=== PATIENT | female | born 1970 | race Caucasian/White ===

== ENCOUNTER 2022-01-17 09:07 | Outpatient (CLI) | payer MEDICAID ==
--- NOTE | 2022-01-24 15:29 | Mammography Report ---
BILATERAL DIGITAL SCREENING MAMMOGRAM 3D/2D WITH EXAGGERATED CC: 01/17/2022 CLINICAL: Routine screening. Family history of breast cancer. No prior exams were available for comparison. There are scattered fibroglandular elements in both br easts. There is a 0.6 cm oval asymmetry with a circumscribed margin in the left breast at 4 o'clock middle d epth 6 cm from the nipple. No other significant masses, calcifications, or other findings are seen in either breast. IMPRESSION: INCOMPLETE: NEEDS ADDITIONAL IMAGING EVALUATION The 0.6 cm oval asymmetry in the left breast is indeterminate. An ultrasound is recommended. This exam was interpreted at Station ID: [id number]. NOTE: For mammograms, a report in lay terms will be sent to the patient. Approximately 15% of breast malignancies will not be visualized mammographically. In the management of a palpable breast mass, a negative mammogram must not discourage biopsy of a clinically suspicious lesion. Electronically Signed By: Farzad Hagan acr/:01/24/2022 14:36:34 ACR BI-RADS Category 0: Incomplete 3340F PARENCHYMAL PATTERN: (A) - The breast(s) demonstrate(s) scattered fibroglandular densities. BI-RADS CATEGORY: (0) - 0 Ultrasound [id number] Immediate follow-up LATERALITY: (L)
== END 2022-01-17 09:08 | disposition home or self-care (01) ==
LOC: DI.S 09:07
PROVIDERS: ATTEND Registered Nurse
DX: Z12.31 Encounter for screening mammogram for malignant neoplasm of breast (principal); Z80.3 Family history of malignant neoplasm of breast; R92.8 Other abnormal and inconclusive findings on diagnostic imaging of breast

== ENCOUNTER 2022-02-21 09:13 | Outpatient (CLI) | payer MEDICAID ==
--- NOTE | 2022-02-21 10:58 | Ultrasound Report ---
LIMITED ULTRASOUND OF LEFT BREAST AND AXILLA: 02/21/2022 CLINICAL: Patient returns today to evaluate a focal asymmetry in the left breast. Comparison is made to exams dated: 01/17/2022 mammogram - [facility], 12/10/2018 mammo gram, and 05/09/2013 mammogram - [facility]. Color flow ultrasound of the left breast 4 o'clock, and axilla regions was performed. Corea scale im ages of the real-time examination were reviewed. There is a 0.5 cm x 0.6 cm x 0.4 cm oval mass with a circumscribed margin in the left breast at 4 o'c lock anterior depth 4 cm from the nipple. This oval mass is hypoechoic. This correlates with mammog patricia findings. Color flow imaging demonstrates that there is vascularity present. No significant abnormalities were seen sonographically in the left axilla. IMPRESSION: SUSPICIOUS OF MALIGNANCY The 0.5 cm x 0.6 cm x 0.4 cm oval mass in the left breast is suspicious of malignancy. An ultrasound guided biopsy is recommended. The findings and recommendations were discussed with the patient by t onsite radiologist, Dr. Diane, at the time of the exam. This exam was interpreted at Station ID: [id number]. Electronically Signed By: Aaron ingram/lele:02/21/2022 10:40:30 Ultrasound BI-RADS: 4 Suspicious for malignancy BI-RADS CATEGORY: (4) - 4 Biopsy [id number] Immediate follow-up LATERALITY: (L)
== END 2022-02-21 09:14 | disposition home or self-care (01) ==
LOC: DI 09:13
PROVIDERS: ATTEND Registered Nurse
DX: R92.8 Other abnormal and inconclusive findings on diagnostic imaging of breast (principal)

== ENCOUNTER 2023-02-27 10:45 | Outpatient (CLI) | payer MEDICAID ==
--- NOTE | 2023-02-28 10:37 | Ultrasound Report ---
LIMITED ULTRASOUND OF LEFT BREAST: 02/27/2023 CLINICAL: Palpable left breast lump. Comparison is made to exams dated: 02/27/2023 mammogram, 03/28/2022 mammogram, 03/28/2022 ultrasound bi opsy, 02/21/2022 ultrasound, 01/17/2022 mammogram - [facility], and 12/10/2018 mammogram - [facility]. Color flow and real-time ultrasound of the left breast 3-4 o'clock region were performed. Corea scale images of the real-time examination were reviewed. There is a 0.9 cm x 0.8 cm x 0.7 cm oval superficial mass in the left breast at 4 o'clock anterior de pth 4 cm from the nipple. This oval mass is hypoechoic and heterogeneously echogenic with posterior acoustic enhancement. This abnormality is increased in size and correlates as palpated, with mammogr aphy findings, and the previous biopsy. Color flow imaging demonstrates that there is no vascularity present. IMPRESSION: SUSPICIOUS OF MALIGNANCY The 0.9 cm x 0.8 cm x 0.7 cm oval mass in the left breast is at a low suspicion for malignancy. Prior pathology demonstrating a fibroadenoma. The mass is increased in size and the patient reports s ome bruising. Discussion was held regarding surgical excision/excisional biopsy vs ultrasound guided biopsy vs short-term imaging follow-up. Patient would like the mass removed. A surgical consult is recommended. This exam was interpreted at Station ID: [id number]. Electronically Signed By: Jamie Diane M.D. slc/:02/27/2023 12:01:52 Ultrasound BI-RADS: 4a Low suspicion for malignancy BI-RADS CATEGORY: (4a) - Low Susp Unspecified - other [id number] Immediate follow-up LATERALITY: (B)
--- NOTE | 2023-02-28 10:37 | Mammography Report ---
BILATERAL DIGITAL DIAGNOSTIC MAMMOGRAM 3D/2D WITH SPOT COMPRESSION: 02/27/2023 CLINICAL: Palpable left breast lump. Due for bilateral imaging. Comparison is made to exams dated: 03/28/2022 mammogram, 01/17/2022 mammogram - [facility], 12/10/2018 mammogram, and 05/09/2013 mammogram - [facility]. There are scattered areas of fibroglandular density in both breasts (category b / 25%-50% glandular t issue). There is a 1 cm oval mass with a circumscribed margin in the left breast at 4 o'clock anterior depth. This is increased in size and correlates as palpated and with the biopsy. No other significant masses, calcifications, or other findings are seen in either breast. IMPRESSION: INCOMPLETE: NEEDS ADDITIONAL IMAGING EVALUATION Previously biopsied superficial left breast fibroadenoma 4:00 is increased in size. A targeted ultrasound is recommended and will immediately follow. Based on the Tyrer Cuzick model (a risk assessment model) the patients lifetime risk is 9.4% and her 10 year risk is 2.7%. According to the ACR, ACS, and NCCN guidelines, an annual breast MRI exam jerry g with mammogram is recommended if the patients lifetime risk is 20% or greater. This exam was interpreted at Station ID: [id number]. NOTE: For mammograms, a report in lay terms will be sent to the patient. Approximately 15% of breast malignancies will not be visualized mammographically. In the management of a palpable breast mass, a negative mammogram must not discourage biopsy of a clinically suspicious lesion. Electronically Signed By: Jamie Diane M.D. slc/:02/27/2023 11:28:23 ACR BI-RADS Category 0: Incomplete 3340F PARENCHYMAL PATTERN: (A) - The breast(s) demonstrate(s) scattered fibroglandular densities. BI-RADS CATEGORY: (0) - 0 Ultrasound [id number] Immediate follow-up LATERALITY: (B)
== END 2023-02-27 10:46 | disposition home or self-care (01) ==
LOC: DI 10:45
PROVIDERS: ATTEND Registered Nurse
DX: N63.23 Unspecified lump in the left breast, lower outer quadrant (principal)

== ENCOUNTER 2024-04-01 07:27 | Outpatient (CLI) | payer OTHER ==
[2024-04-01 14:46] LABS: EOSINOPHILS # (AUTO) 0.2 10^3/uL (0.0-0.7); EOSINOPHILS % (AUTO) 4.1 %; HCT - HEMATOCRIT 37.4 % (37.0-47.0); HGB - HEMOGLOBIN 11.9 g/dL (12.0-16.0); LYMPHOCYTES # (AUTO) 1.5 10^3/uL (1.5-3.5); LYMPHOCYTES % (AUTO) 37.4 %; MEAN CORPUSCULAR HEMOGLOBIN 27.7 pg (27.0-31.0); MEAN CORPUSCULAR HGB CONC 31.8 g/dL (32.0-36.0); MEAN PLATELET VOLUME 11.8 fL (7.9-10.8); MONOCYTES # (AUTO) 0.4 10^3/uL (0.0-1.0); MONOCYTES % (AUTO) 10.4 %; NEUTROPHILS # (AUTO) 1.9 10^3/uL (1.5-6.6); NEUTROPHILS % (AUTO) 47.1 %; PLT - PLATELET COUNT 246 10^3/uL (130-450); RED CELL DISTRIBUTION WIDTH 14.2 % (12.0-15.0); WHITE BLOOD COUNT 4.1 x10^3/uL (4.8-10.8)
[2024-04-01 15:25] LABS: ALBUMIN 4.4 g/dL (3.2-5.5); ALBUMIN/GLOBULIN RATIO 2.1 (1.0-2.2); ALKALINE PHOSPHATASE 51 IU/L (42-121); ALT ALANINE AMINOTRANSFERASE 11 IU/L (10-60); AST ASPARTATE AMINOTRANSFERASE 21 IU/L (10-42); BILIRUBIN,TOTAL 0.8 mg/dL (0.2-1.0); BUN - BLOOD UREA NITROGEN 15 mg/dL (6-20); CALCIUM 9.5 mg/dL (8.5-10.3); CARBON DIOXIDE - CO2 29 mmol/L (21-32); CHLORIDE 107 mmol/L (101-111); CHOL/HDL RATIO 2.2 (<4.4); CHOLESTEROL 192 mg/dL; CREATININE 0.8 mg/dL (0.6-1.3); GFR - MDRD 74 (>89); GLUCOSE 93 mg/dL (74-104); HDL CHOLESTEROL 87 mg/dL; LDL CHOLESTEROL,CALCULATED 96 mg/dL; LDL/HDL RATIO 1.1 (<4.4); SODIUM 140 mmol/L (135-145); TOTAL PROTEIN 6.5 g/dL (6.4-8.9); TRIGLYCERIDES 47 mg/dL; VLDL CHOLESTEROL 9 mg/dL
[2024-04-01 15:37] LABS: THYROID STIMULATING HORMONE 2.05 uIU/mL (0.34-5.60)
== END 2024-04-01 07:28 | disposition home or self-care (01) ==
LOC: LAB.S 07:27
PROVIDERS: ATTEND Registered Nurse
DX: Z13.228 Encounter for screening for other metabolic disorders (principal); Z13.220 Encounter for screening for lipoid disorders; Z13.29 Encounter for screening for other suspected endocrine disorder; Z13.0 Encounter for screening for diseases of the blood and blood-forming organs and certain disorders involving the immune mechanism
CPT/HCPCS: 36415; 80053; 80061; 83721; 84443; 85025